=== PATIENT | male | born 1985 | race Two or more races ===

== ENCOUNTER 2022-02-04 20:42 | Emergency (ER) | payer SELFPAY ==
[~2022-02-04] VITALS: Ht 180.3 cm; Wt 83.4 kg
[2022-02-04 21:30] VITALS: BP 139/96
== END 2022-02-05 00:38 | disposition left against medical advice (07) ==
LOC: ER 20:42
DX: S61.217A Laceration without foreign body of left little finger without damage to nail, initial encounter (principal); Z53.21 Procedure and treatment not carried out due to patient leaving prior to being seen by health care provider; W26.8XXA Contact with other sharp object(s), not elsewhere classified, initial encounter; Y93.89 Activity, other specified; Y92.89 Other specified places as the place of occurrence of the external cause; Y99.8 Other external cause status

== ENCOUNTER 2022-08-02 17:49 | Emergency (ER) | payer MEDICAID, OTHER ==
[~2022-08-02] VITALS: Ht 177.8 cm; Wt 87.2 kg
[2022-08-02 18:05] VITALS: BP 144/91
[2022-08-02] MEDS ORDERED: ONDANSETRON HCL 4 MG/2 ML VIAL IV ONE (19:15)
[2022-08-02] MEDS ORDERED: LORazepam 2MG/ML-1ML VIAL IV ONE (19:15)
[2022-08-02] MEDS ORDERED: SODIUM CHLORIDE 0.9% 1,000 ML IVB ONE (19:15)
[2022-08-02] MEDS ORDERED: SODIUM CHLORIDE 0.9% 1,000 ML IV ONE (19:15)
[2022-08-02] MEDS ORDERED: CHL10C PO (19:44)
[2022-08-02 19:45] LABS: Basophils # (auto) 0.1 10 ^3/uL (0-0.2); Basophils % (auto) 0.9 % (0.0-2.0); Eosinophils # (auto) 0 10 ^3/uL (0-0.8); Eosinophils % (auto) 0.3 % (0.0-7.0); Hematocrit 43.1 % (41.0-53.0); Hemoglobin 14.3 g/dL (13.5-17.5); Lymphocytes # (auto) 2.9 10 ^3/uL (0.4-5.4); Lymphocytes % (auto) 40.8 % (10.0-50.0); Mean Corpuscular Hgb Conc. 33.2 g/dL (32.0-36.0); Mean Corpuscular Volume 87.2 fL (80.0-100.0); Monocytes # (auto) 0.6 10 ^3/uL (0-1.3); Neutrophils # (auto) 3.5 10 ^3/uL (1.6-8.6); Nucleated Red Blood Cells % 0.3 %; Red Blood Cells 4.94 10^6/uL (4.5-5.90); Red Cell Distribution Width 14.3 % (11.8-14.3); White Blood Cell 7.2 10^3/uL (4.4-10.8)
[2022-08-02] MEDS ORDERED: ONDA-144 PO (19:45)
[2022-08-02] MEDS ORDERED: IBUPROFEN 600 MG TAB PO ONE (20:00)
[2022-08-02 20:03] LABS: Albumin 4.3 g/dL (3.4-5.0); Calcium 9.4 mg/dL (8.5-10.1); Potassium 4.5 mmol/L (3.5-5.1)
[2022-08-02 20:07] LABS: BUN/Creatinine Ratio 11.6 (10.0-20.0); Bilirubin, Total 0.4 mg/dL (0.2-1.0); Total Protein 8.4 g/dL (6.4-8.2)
== END 2022-08-03 00:51 | disposition home or self-care (01) ==
LOC: ER 17:49
DX: F10.139 Alcohol abuse with withdrawal, unspecified (principal); Y90.1 Blood alcohol level of 20-39 mg/100 ml
CPT/HCPCS: 36415; 80053; 80320; 85025

== ENCOUNTER 2024-03-28 09:19 | Inpatient (IN) | payer MEDICAID ==
[~2024-03-28] VITALS: Ht 180.3 cm; Wt 98.0 kg
[~2024-03-28 09:19] MED LIST: CHL10C PO; LISI10TA34 PO; ONDA-144 PO
--- NOTE | 2024-03-28 09:37 | ED.PDOC ---
History of Present Illness HPI Comments 39 year old male TAMIKA presents to the ED with chief complaint of ETOH withdrawals. Patient reports that he has been experiencing chills, body aches, nausea, vomiting, chest pain, abdominal pain, and tremors for the past 3 days, noting that he stopped drinking after a 3 week binge on Tuesday. Patient relays that he visited yesterday and was given Tamiflu and Zofran with no relief noted. EMS states patient called 911 yesterday, but had signed out AMA and then called again today due to his symptoms persisting. Patient denies any fever, dizziness, headache, SOB, diarrhea, or hematemesis. Time Seen by MD: 09:31 Reviewed Notes: Nurses Notes, Machine Setter Sheet Metal Notes, Medications, Allergies Allergies: Coded Allergies: NO KNOWN ALLERGIES (Unverified , 02/04/22) Home Meds Active Scripts Ondansetron (Zofran) 4 Mg Tab, 1 TAB PO Q6HR, #20 TAB Prov:LISA BRIDGES MD 08/02/22 Chlordiazepoxide Hcl (Ni-1) (I (Librium) 10 Mg Cap, 10 MG PO BID for 7 Days, #20 CAP Prov:LISA BRIDGES MD 08/02/22 Lisinopril (Lisinopril) 10 Mg Tab, 10 MG PO DAILY for 7 Days, #7 MG Prov:EARL JONES MD 07/12/22 Information Source: Patient, Emergency Med Personnel Mode of Arrival: EMS Severity: Moderate Timing: Hours Duration: Since onset Prehospital treatment: None Past Medical History PAST MEDICAL HISTORY: Denies Surgical History: Denies all surgeries Family History Family History: Reviewed,noncontributory to illness Social History Smoker: Non-Smoker, Other Alcohol: Heavy Drugs: Denies Drug Use Lives In: Home Constitutional: reports: malaise; denies: chills, diaphoresis, fatigue, fever, sweats, weakness, others EENTM: denies: blurred vision, double vision, ear bleeding, ear discharge, ear drainage, ear pain, ear ringing, eye pain, eye redness, hearing loss, mouth pain, mouth swelling, nasal discharge, nose bleeding, nose congestion, nose pain, photophobia, tearing, throat pain, throat swelling, voice changes, others Respiratory: denies: cough, hemoptysis, orthopnea, SOB at rest, shortness of breath, SOB with excertion, stridor, wheezing, others Cardiovascular: reports: chest pain; denies: dizzy spells, diaphoresis, Dyspnea on exertion, edema, irregular heart beat, left arm pain, lightheadedness, palpitations, PND, syncope, others Gastrointestinal: reports: abdominal pain, nausea, vomiting; denies: abdomen distended, blood streaked bowels, constipated, diarrhea, dysphagia, difficulty swallowing, hematemesis, melena, poor appetite, poor fluid intake, rectal bleeding, rectal pain, others Genitourinary: denies: burning, dysuria, flank pain, frequency, hematuria, incontinence, penile discharge, penile sore, pain, testicle pain, testicle swelling, urgency, others Neurological: reports: tremors; denies: dizziness, fainting, headache, left sided numbness, left sided weakness, numbness, paresthesia, pre-existing deficit, right sided numbness, right sided weakness, seizure, speech problems, tingling, weakness, others Musculoskeletal: denies: back pain, gout, joint pain, joint swelling, muscle p ain, muscle stiffness, neck pain, others Integumetry: denies: bruises, change in color, change in hair/nails, dryness, laceration, lesions, lumps, rash, wounds, others Allergic/Immunocompromised: denies: Difficulty Healing, Frequent Infections, Hives, Itching, others Hematologic/Lymphatic: denies: anemia, blood clots, easy bleeding, easy bruising, swollen glands, others Endocrine: denies: excessive hunger, excessive sweating, excessive thirst, excessive urination, flushing, intolerance to cold, intolerance to heat, unexplained weight gain, unexplained weight loss, others Psychiatric: denies: anxiety, bipolar disorder, depression, hopeless, panic disorder, schizophrenia, sleepless, suicidal, others All Other Systems: Reviewed and Negative Physical Exam General Appearance: No Apparent Distress, Normal HEENT: Normal ENT Inspection, PERRL/EOMI, Other (Dry mucous membranes) Neck: Full Range of Motion, Non-Tender, Normal, Normal Inspection Respiratory: Chest Non-Tender, Lungs Clear, No Accessory Muscle Use, No Respiratory Distress, Normal Breath Sounds Cardiovascular: No Edema, No JVD, No Murmur, No Gallop, Normal Peripheral Pulses, Tachycardia Breast Exam: Deferred Gastrointestinal: No Organomegaly, Non Tender, No Pulsatile Mass, Normal Bowel Sounds, Soft Genitalia: Deferred Pelvic: Deferred Rectal: Deferred Extremities: No calf tenderness, Normal capillary refill, Normal inspection, Normal range of motion, Non-tender, No pedal edema Musculoskeletal : Apperance: Normal Neurologic: Alert, 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 Was a procedure done?: No EKG EKG : Pulse Rate (adult): 120 Scott: Normal Cardiac Rhythm: ST Block: None Hypertrophy: None ST: Normal Differential Dx Considerations may include: Dehydration, electrolyte abnormalities, alcohol withdrawal, viral syndrome X-Ray, Labs, Meds, VS Vital Signs Date Time Temp Pulse Resp B/P (MAP) Pulse Ox O2 Delivery O2 Flow Rate FiO2 03/28/24 09:40 97.8 120 24 145/95 (112) 99 03/28/24 09:40 97.8 120 24 145/95 (112) 99 97.8 03/28/24 09:38 120 03/28/24 09:26 120 Lab Test 03/28/24 12:34 03/28/24 10:45 03/28/24 09:49 Range/Units Troponin I High Sensitivity 16 17 19 </=54 ng/L White Blood Count 8.7 4.4-10.8 10^3/uL Red Blood Count 6.11 H 4.5-5.90 10^6/uL Hemoglobin 18.7 H 13.5-17.5 g/dL Hematocrit 53.6 H 41.0-53.0 % Mean Corpuscular Volume 87.8 80.0-100.0 fL Mean Corpuscular Hemoglobin 30.6 28.0-32.0 pg Mean Corpuscular Hemoglobin Concent 34.9 32.0-36.0 g/dL Red Cell Distribution Width 15.1 H 11.8-14.3 % Platelet Count 343 140-450 10^3/uL Mean Platelet Volume 7.5 6.9-10.8 fL Neutrophils (%) (Auto) 62.9 37.0-80.0 % Lymphocytes (%) (Auto) 24.1 10.0-50.0 % Monocytes (%) (Auto) 12.0 0.0-12.0 % Eosinophils (%) (Auto) 0.0 0.0-7.0 % Basophils (%) (Auto) 1.0 0.0-2.0 % Neutrophils # (Auto) 5.5 1.6-8.6 10 ^3/uL Lymphocytes # (Auto) 2.1 0.4-5.4 10 ^3/uL Monocytes # (Auto) 1.1 0-1.3 10 ^3/uL Eosinophils # (Auto) 0 0-0.8 10 ^3/uL Basophils # (Auto) 0.1 0-0.2 10 ^3/uL Nucleated Red Blood Cells 0.1 % Sodium Level 139 136-145 mmol/L Potassium Level 3.7 3.5-5.1 mmol/L Chloride Level 99 98-107 mmol/L Carbon Dioxide Level 21 20-31 mmol/L Anion Gap 19 H 5-15 Blood Urea Nitrogen 20 9-23 mg/dL Creatinine 3.33 H 0.700-1.30 mg/dL Glomerular Filtration Rate Calc 23 >90 mL/min BUN/Creatinine Ratio 6.0 L 10.0-20.0 Serum Glucose 168 H 74-106 mg/dL Calcium Level 10.5 H 8.7-10.4 mg/dL Plasma/Serum Blood Alcohol < 3.0 <10 mg/dL Current Medications Medications (Trade) Dose Ordered Sig/Carmelina Route Start Time Stop Time Status Last Admin Lorazepam (Ativan Inj) 1 mg ONCE ONCE IV 03/28/24 10:00 03/28/24 10:01 DC 03/28/24 10:06 Sodium Chloride 1,000 ml @ 1,000 mls/hr Q1H ONCE IV 03/28/24 11:00 03/28/24 11:59 DC 03/28/24 11:02 Ondansetron HCl (Zofran) 4 mg ONCE ONCE IV 03/28/24 11:00 03/28/24 11:01 DC 03/28/24 11:02 Chest XR: FINDINGS: Medical devices: None. Cardiomediastinal: The heart is normal in size. Pulmonary vasculature is within normal limits. Lungs: No focal pulmonary opacity is seen. The costophrenic angles are clear. No pneumothorax. Bones/soft tissues: No acute abnormality is noted. IMPRESSION: 1. No acute cardiopulmonary disease. Images Reviewed?: Images reviewed and evaluated by me Time of 1ST Reevaluation: 10:31 Reevaluation 1ST: Unchanged Patient Education/Counseling: Diagnosis, Treatment Family Education/Counseling: No Family Present Departure 1 Departure Time of Disposition: 13:46 (Patient with an SELWYN with elevated creatinine.) Impression: Primary Impression: Acute kidney injury Additional Impression: Dehydration Disposition: 09 ADMITTED INPATIENT Admit to: Med Surg Condition: Serious Critical Care Note Critical Care Time?: No Stability Stability form required: No Heart Score Heart Score: Heart Score Response (Comments) Value History N/A 0 EKG N/A 0 Age N/A 0 Risk Factors N/A 0 Troponin N/A 0 Total 0 I personally scribed for NEO SCOTT MD ([email or web address]) on 03/28/24 at 09:37. Electronically submitted by Campbell Walters ([email or web address]). I personally scribed for NEO SCOTT MD ([email or web address]) on 03/28/24 at 09:38. Electronically submitted by Campbell Walters ([email or web address]). I personally scribed for NEO SCOTT MD ([email or web address]) on 03/28/24 at 12:36. Electronically submitted by Campbell Walters ([email or web address]). NEO SCOTT MD Mar 28, 2024 09:37
[2024-03-28 10:05] LABS: Basophils # (auto) 0.1 10 ^3/uL (0-0.2); Eosinophils # (auto) 0 10 ^3/uL (0-0.8); Hemoglobin 18.7 g/dL (13.5-17.5)
[2024-03-28] MEDS: LORazepam 2MG/ML-1ML VIAL IV ONE (10:06)
[2024-03-28 10:07] LABS: Hematocrit 53.6 % (41.0-53.0); Lymphocytes # (auto) 2.1 10 ^3/uL (0.4-5.4); Lymphocytes % (auto) 24.1 % (10.0-50.0); Mean Corpuscular Hemoglobin 30.6 pg (28.0-32.0); Mean Corpuscular Hgb Conc. 34.9 g/dL (32.0-36.0); Mean Corpuscular Volume 87.8 fL (80.0-100.0); Monocytes # (auto) 1.1 10 ^3/uL (0-1.3); Neutrophils # (auto) 5.5 10 ^3/uL (1.6-8.6); Neutrophils % (auto) 62.9 % (37.0-80.0); Nucleated Red Blood Cells % 0.1 %; Platelet Count (auto) 343 10^3/uL (140-450); Red Blood Cells 6.11 10^6/uL (4.5-5.90); Red Cell Distribution Width 15.1 % (11.8-14.3); White Blood Cell 8.7 10^3/uL (4.4-10.8)
--- NOTE | 2024-03-28 10:07 | DVH ---
Procedure: XY CHEST PORTABLE 03/28/2024 09:39 AM Indication: sob Comparison: None TECHNIQUE: XY CHEST PORTABLE FINDINGS: Medical devices: None. Cardiomediastinal: The heart is normal in size. Pulmonary vasculature is within normal limits. Lungs: No focal pulmonary opacity is seen. The costophrenic angles are clear. No pneumothorax. Bones/soft tissues: No acute abnormality is noted. IMPRESSION: 1. No acute cardiopulmonary disease.
[2024-03-28 10:35] LABS: Chloride 99 mmol/L (98-107); Potassium 3.7 mmol/L (3.5-5.1); Sodium 139 mmol/L (136-145)
[2024-03-28 10:36] LABS: Anion Gap 19 (5-15); Carbon Dioxide 21 mmol/L (20-31)
[2024-03-28 10:37] LABS: Calcium 10.5 mg/dL (8.7-10.4)
[2024-03-28 10:42] LABS: Blood Alcohol < 3.0 mg/dL (<10); Blood Urea Nitrogen 20 mg/dL (9-23); Glucose 168 mg/dL (74-106)
[2024-03-28] MEDS: ONDANSETRON HCL 4 MG/2 ML VIAL IV ONE ×2 (11:02→15:23)
[2024-03-28] MEDS: SODIUM CHLORIDE 0.9% 1,000 ML IV ONE ×2 (11:02→15:21)
[2024-03-28] MEDS: ONDANSETRON HCL 4 MG/2 ML VIAL ONE (11:03)
--- NOTE | 2024-03-28 12:31 | ECG ---
[facility]– [place] Test Date: 2024-03-28 Test Time: 09:26:44 Pat Name: DARNELL KHAN Department: ER Room: 0209T Gender: M Dogger: ALBERT : 1985 Requested By: EMERGENCY EMERGENCY Order Number: [id number] Reading MD: Mike Newell Measurements Intervals [place] Rate: 120 P: 68 [place]: 135 QRS: 205 QRSD: 106 T: 44 QT: 379 QTc: 536 Interpretive Statements Sinus tachycardia Probable left atrial enlargement Probable right ventricular hypertrophy Repol abnrm suggests ischemia, anterolateral Prolonged QT interval Electronically Signed On 03-30-2024 17:34:01 PST by Mike Newell Please click the below link to view image of tracing.
[2024-03-28] MEDS ORDERED: MORPHINE SULFATE INJ 2 MG/ml SYRG IV PRN (16:00)
[2024-03-28] MEDS ORDERED: NITROGLYCERIN 0.4 MG SL TAB SL PRN (16:00)
--- NOTE | 2024-03-28 16:39 | DVHHP2 ---
Admitting Diagnosis: Admission date: 03/28/2024 alcohol withdraw History of Present Illness Patient is a 39-year-old male who presents to the emergency department with a chief complaint of alcohol withdrawals. Patient states that for the past 3 days has been experiencing bodyaches, chills, vomiting, nausea, chest pain, abdominal pain, and tremors. Patient states that he is stopped drinking after a 3-week binge on Tuesday. Patient states that at urgent care yesterday he was given Zofran and Tamiflu with no relief noticed. EMS states that patient called 911 yesterday and was admitted to the hospital but signed out AMA and then called again today because of his symptoms persisting. Patient denies any shortness of breath, diarrhea, headache, dizziness, fever, or hematemesis. While in the emergency department the patient was evaluated by the provider, As per provider: Labs, vital signs, and imagining monitored. Patient will be admitted for further evaluation and treatment. I discussed admission with the patient/family and is in agreement to treatment plan Allergies: Coded Allergies: NO KNOWN ALLERGIES (Unverified , 02/04/22) Home Meds Active Scripts Ondansetron (Zofran) 4 Mg Tab, 1 TAB PO Q6HR, #20 TAB Prov:LISA BRIDGES MD 08/02/22 Chlordiazepoxide Hcl (Ni-1) (I (Librium) 10 Mg Cap, 10 MG PO BID for 7 Days, #20 CAP Prov:LISA BRIDGES MD 08/02/22 Lisinopril (Lisinopril) 10 Mg Tab, 10 MG PO DAILY for 7 Days, #7 MG Prov:EARL JONES MD 07/12/22 Reported Medications Zolpidem Tartrate (Ambien) 10 Mg Tab, 10 MG PO, TAB 03/29/24 Oseltamivir Phosphate (Tamiflu) 75 Mg Cap, 1 CAP PO, #10 CAP 03/29/24 Hydrochlorothiazide (Hydrochlorothiazide) 25 Mg Tab, PO DAILY for 30 Days, MG 03/29/24 Current Medications Current Medications Medications (Trade) Dose Ordered Sig/Carmelina Route PRN Reason Start Time Stop Time Status Last Admin Multivitamins (Mvi Tab) 1 tab DAILY PO 03/29/24 10:00 Hold Gabapentin (Neurontin Capsule) 300 mg TID PO 03/28/24 22:00 03/29/24 14:12 Quetiapine Fumarate (SEROquel TABLET) 25 mg HS PO 03/28/24 22:00 03/28/24 22:06 Sodium Chloride 1,000 ml @ 100 mls/hr Q10H IV 03/29/24 09:15 03/29/24 09:55 Sucralfate (Carafate Susp) 1 gm QID@0600,1130,1700,2200 PO 03/29/24 10:00 03/29/24 17:36 Pantoprazole Sodium (Protonix) 40 mg DAILY IV 03/29/24 10:00 03/29/24 09:54 Oseltamivir Phosphate (Tamiflu 75MG Capsule) 75 mg Q12HR PO 03/29/24 10:45 04/03/24 10:44 03/29/24 11:21 Hydralazine HCl (Apresoline Injection) 10 mg Q6HP PRN IV SBP>150 03/29/24 17:15 Review of Systems Constitutional: denies chills, denies fever, denies malaise Eyes: denies eye pain, denies vision change ENT: denies ear pain, denies headache, denies nasal congestion, denies painful swallowing, denies voice change Cardiovascular: denies chest pain, denies edema, denies orthopnea, denies palpitations, denies paroxysmal nocturnal dyspnea Respiratory: denies cough, denies shortness of breath Gastrointestinal: denies constipation, denies diarrhea, denies nausea, denies vomiting Genitourinary: denies dysuria, denies frequent urination, denies urethral discharge Musculoskeletal: denies back pain, denies joint pain, denies muscle pain Skin: denies bruising, denies itching, denies rash Neurological: denies focal weakness, denies headache, denies sensory changes Psychiatric: denies anxiety, denies depression Endocrine: denies polydipsia, denies polyuria Hematologic/Lymphatic: denies easy bleeding, denies easy bruising, denies enlarged lymph nodes Allergic/Immunologic: denies allergy, denies hives Vital Signs Vital Signs Date Time Temp Pulse Resp B/P (MAP) Pulse Ox O2 Delivery O2 Flow Rate FiO2 03/29/24 17:27 98.0 95 18 144/90 (108) 95 98.0 03/29/24 08:10 Room Air* 0 21 Physical Exam General Appearance: alert, no distress HEENT: EOMI, PERRLA, normal external inspect of ears, no icterus, no nasal drainage Neck: no carotid bruit, no jugular venous distention (JVD), no lymphadenopathy Chest: normal thorax Respiratory: clear to auscultation, normal air movement Cardiovascular: regular rate and rhythm, no diastolic murmur, no jugular venous distention (JVD), no rub, no systolic murmur Abdominal: soft, no hepatomegaly, no mass, no splenomegaly, no tenderness Genitourinary: grossly normal external Musculoskeletal: no joint tenderness, no swelling Extremities: normal pulses, no calf tenderness, no clubbing, no cyanosis, no edema Skin: no bruising, no jaundice, no rash Neurological: alert, No focal deficit Results Labs Test 03/29/24 07:25 03/29/24 02:47 03/28/24 20:40 03/28/24 12:34 Range/Units White Blood Count 6.8 4.4-10.8 10^3/uL Red Blood Count 5.17 4.5-5.90 10^6/uL Hemoglobin 15.7 # 13.5-17.5 g/dL Hematocrit 45.9 # 41.0-53.0 % Mean Corpuscular Volume 88.9 80.0-100.0 fL Mean Corpuscular Hemoglobin 30.4 28.0-32.0 pg Mean Corpuscular Hemoglobin Concent 34.2 32.0-36.0 g/dL Red Cell Distribution Width 14.9 H 11.8-14.3 % Platelet Count 252 140-450 10^3/uL Mean Platelet Volume 7.2 6.9-10.8 fL Neutrophils (%) (Auto) 47.3 37.0-80.0 % Lymphocytes (%) (Auto) 37.3 10.0-50.0 % Monocytes (%) (Auto) 15.0 H 0.0-12.0 % Eosinophils (%) (Auto) 0.1 0.0-7.0 % Basophils (%) (Auto) 0.3 0.0-2.0 % Neutrophils # (Auto) 3.2 1.6-8.6 10 ^3/uL Lymphocytes # (Auto) 2.5 0.4-5.4 10 ^3/uL Monocytes # (Auto) 1.0 0-1.3 10 ^3/uL Eosinophils # (Auto) 0 0-0.8 10 ^3/uL Basophils # (Auto) 0 0-0.2 10 ^3/uL Nucleated Red Blood Cells 0.2 % Sodium Level 142 136-145 mmol/L Potassium Level 3.6 3.5-5.1 mmol/L Chloride Level 102 98-107 mmol/L Carbon Dioxide Level 30 20-31 mmol/L Anion Gap 10 5-15 Blood Urea Nitrogen 15 9-23 mg/dL Creatinine 1.45 H 0.700-1.30 mg/dL Glomerular Filtration Rate Calc 63 >90 mL/min BUN/Creatinine Ratio 10.3 10.0-20.0 Serum Glucose 141 H 74-106 mg/dL Hemoglobin A1c 6.1 H <5.7 % A1C Calcium Level 9.2 8.7-10.4 mg/dL Total Bilirubin 1.9 H 0.2-1.0 mg/dL Aspartate Amino Transferase (AST) 209 H 13-40 U/L Alanine Aminotransferase (ALT) 131 H 7-40 U/L Alkaline Phosphatase 62 46-116 U/L Creatine Kinase 919 H 46-171 U/L Total Protein 7.5 5.7-8.2 g/dL Albumin 4.8 3.2-4.8 g/dL Lipase 35 12-53 U/L Influenza Type A Antigen Negative Negative Influenza Type B Antigen Positive Negative SARS-CoV-2 Antigen (Rapid) Negative NEGATIVE Urine Opiates Screen Neg NEGATIVE Urine Fentanyl Screen Neg NEGATIVE Urine Barbiturates Screen Neg NEGATIVE Urine Phencyclidine Screen Neg NEGATIVE Urine Amphetamines Screen Neg NEGATIVE Urine Benzodiazepines Screen Neg NEGATIVE Urine Cocaine Screen Neg NEGATIVE Urine Cannabinoids Screen Neg NEGATIVE Troponin I High Sensitivity 16 </=54 ng/L Test 03/28/24 09:49 Range/Units Plasma/Serum Blood Alcohol < 3.0 <10 mg/dL Plan 1. EtOH withdrawals Monitor, banana bag, CIWA protocol, PPI 2. Influenza B Monitor, Tamiflu 3. Acute renal failure R/T hypovolemia Monitor, IV fluids, monitor renal function, nephrology consult 4. Acute alcoholic hepatitis Monitor, as needed Ativan Plan discussed with: Patient, Other BRIANNE WYATT NP Mar 28, 2024 16:39
[2024-03-28] MEDS ORDERED: FOLIC ACID 1 MG TAB PO ONE (16:45)
[2024-03-28] MEDS ORDERED: THIAMINE HCL 100 MG TAB PO ONE (16:45)
[2024-03-28] MEDS: METOCLOPRAMIDE HCL 5MG/ml INJ 2ml VIAL IV ONE (16:47)
[2024-03-28] MEDS: SODIUM CHLORIDE 0.9% 1,000 ML IV SCH (18:35)
[2024-03-28] MEDS: ACETAMINOPHEN 325 MG TAB PO PRN (18:35)
[2024-03-28] MEDS: FOLIC ACID 1 MG, MULTIPLE VITAMIN 10 ML, MAGNESIUM SULF SDV 50% 8 MEQ, THIAMINE INJ 100... INJ SCH (18:52)
[2024-03-28] MEDS: ONDANSETRON HCL 4 MG/2 ML VIAL IV PRN (20:36)
[2024-03-28] MEDS: LORazepam 2MG/ML-1ML VIAL IV PRN (20:37)
[2024-03-28 20:39] VITALS: PULSE 95; RESP 18; O2SAT 96
[2024-03-28 21:22] LABS: Amphetamine Screen, Urine Neg (NEGATIVE); Barbiturate Scree,Urine Neg (NEGATIVE); Benzodiazephine Screen, Urine Neg (NEGATIVE); Cocaine Screen, Urine Neg (NEGATIVE); Opiate Scree,Urine Neg (NEGATIVE)
[2024-03-28 21:23] LABS: Cannabinoid Screen, Urine Neg (NEGATIVE); Phencyclidine Screen, Urine Neg (NEGATIVE)
[2024-03-28] MEDS: GABAPENTIN 300 MG CAP PO SCH (22:06)
[2024-03-28] MEDS: QUEtiapine FUMARATE 25 MG TAB PO SCH (22:06)
[2024-03-29] VITALS (12 sets, daily range): BP systolic 139–188; BP diastolic 57–101; PULSE 95–145; RESP 17–20; TEMP 97.6–98.8; O2SAT 93–97
[2024-03-29 03:40] LABS: COVID19 ANTIGEN SOFIA FIA NEGATIVE (NEGATIVE)
[2024-03-29 03:42] LABS: Rapid Influenza A Negative (Negative)
[2024-03-29 03:44] LABS: Rapid Influenza B Positive (Negative)
[2024-03-29] MEDS: HYDROcodone-ACET 5/325MG TAB PO PRN (05:45)
[2024-03-29] MEDS ORDERED: HYDR25TA4 PO (05:56)
[2024-03-29] MEDS ORDERED: QUET25TA37 PO (05:56)
[2024-03-29] MEDS ORDERED: OSEL75CA5 PO (05:56)
[2024-03-29] MEDS ORDERED: ZOLP10TA PO (05:57)
[2024-03-29 08:00] LABS: Basophils # (auto) 0 10 ^3/uL (0-0.2); Basophils % (auto) 0.3 % (0.0-2.0); Eosinophils # (auto) 0 10 ^3/uL (0-0.8); Eosinophils % (auto) 0.1 % (0.0-7.0); Hematocrit 45.9 % (41.0-53.0); Hemoglobin 15.7 g/dL (13.5-17.5); Lymphocytes # (auto) 2.5 10 ^3/uL (0.4-5.4); Lymphocytes % (auto) 37.3 % (10.0-50.0); Mean Corpuscular Hemoglobin 30.4 pg (28.0-32.0); Mean Corpuscular Hgb Conc. 34.2 g/dL (32.0-36.0); Mean Corpuscular Volume 88.9 fL (80.0-100.0); Neutrophils # (auto) 3.2 10 ^3/uL (1.6-8.6); Neutrophils % (auto) 47.3 % (37.0-80.0); Nucleated Red Blood Cells % 0.2 %; Platelet Count (auto) 252 10^3/uL (140-450); Red Blood Cells 5.17 10^6/uL (4.5-5.90); Red Cell Distribution Width 14.9 % (11.8-14.3); White Blood Cell 6.8 10^3/uL (4.4-10.8)
[2024-03-29 08:07] LABS: Alanine Aminotransferase 131 U/L (7-40); Albumin 4.8 g/dL (3.2-4.8); Alkaline Phosphatase 62 U/L (46-116); Anion Gap 10 (5-15); Aspartate Aminotransferase 209 U/L (13-40); BUN/Creatinine Ratio 10.3 (10.0-20.0); Blood Urea Nitrogen 15 mg/dL (9-23); Calcium 9.2 mg/dL (8.7-10.4); Carbon Dioxide 30 mmol/L (20-31); Chloride 102 mmol/L (98-107); Glucose 141 mg/dL (74-106); Potassium 3.6 mmol/L (3.5-5.1); Sodium 142 mmol/L (136-145)
[2024-03-29 08:08] LABS: Bilirubin, Total 1.9 mg/dL (0.2-1.0); Total Protein 7.5 g/dL (5.7-8.2)
--- NOTE | 2024-03-29 09:03 | DVHINCON2 ---
Date of service: Mar 29, [address] Langston Reason for Consultation Acute kidney injury. History of Present Illness 39-year-old patient with significant history of alcoholism who was going through it difficult. In his life and started drinking heavily for the last 2-3 weeks and he suddenly stopped on Tuesday since then he has had symptoms of withdrawal including severe intractable nausea and vomiting associated with epigastric discomfort and unable to tolerate oral intake. Additionally he has been experiencing chills myalgias and uncontrollable tremors for the last three days. Patient went to the urgent care he was diagnosed with influenza given Tamiflu and Zofran without significant improvements. He denies flank pain or difficulty with urination but has noticed dark discoloration of the urine. Otherwise he denies NSAID intake, history of kidney disease. On admission he was found to have acute kidney injury. Past Medical History Chronic alcoholism Past Surgical History Denied Allergies: Coded Allergies: NO KNOWN ALLERGIES (Unverified , 02/04/22) Home Meds Active Scripts Ondansetron (Zofran) 4 Mg Tab, 1 TAB PO Q6HR, #20 TAB Prov:LISA BRIDGES MD 08/02/22 Chlordiazepoxide Hcl (Ni-1) (I (Librium) 10 Mg Cap, 10 MG PO BID for 7 Days, #20 CAP Prov:LISA BRIDGES MD 08/02/22 Lisinopril (Lisinopril) 10 Mg Tab, 10 MG PO DAILY for 7 Days, #7 MG Prov:EARL JONES MD 07/12/22 Reported Medications Zolpidem Tartrate (Ambien) 10 Mg Tab, 10 MG PO, TAB 03/29/24 Oseltamivir Phosphate (Tamiflu) 75 Mg Cap, 1 CAP PO, #10 CAP 03/29/24 Hydrochlorothiazide (Hydrochlorothiazide) 25 Mg Tab, PO DAILY for 30 Days, MG 03/29/24 Current Medications Current Medications Medications (Trade) Dose Ordered Sig/Carmelina Route PRN Reason Start Time Stop Time Status Last Admin Sodium Chloride 1,000 ml @ 120 mls/hr Q8H20M IV 03/28/24 16:00 03/28/24 18:35 Acetaminophen/ Hydrocodone Bitart ([place] 5/325MG Tab) 1 tab Q4HP PRN PO MODERATE PAIN (4-6 PAIN SCALE) 03/28/24 16:00 03/29/24 05:45 Ondansetron HCl (Zofran) 4 mg Q4HP PRN IV NAUSEA / VOMITING 03/28/24 16:00 03/29/24 05:45 Acetaminophen (Tylenol Tablet) 650 mg Q6HP PRN PO PAIN SCALE 1-3 OR TEMP>100.4 03/28/24 16:00 03/28/24 18:35 Folic Acid 1 mg/ Multivitamins 10 ml/Magnesium Sulfate 8 meq/ Thiamine HCl 100 mg/Dextrose 1,013.2 ml @ 125.001 mls/hr DAILY@1800 INJ 03/28/24 18:00 03/28/24 18:52 Nitroglycerin (Ntrostat Sublingual) 0.4 mg Q5MINP PRN SL FOR CHEST PAIN 03/28/24 16:00 Morphine Sulfate 2 mg Q30M PRN IV FOR CHEST PAIN 03/28/24 16:00 Multivitamins (Mvi Tab) 1 tab DAILY PO 03/29/24 10:00 Future Hold Lorazepam (Ativan Inj) 1 mg Q2HPRN PRN IV ETOH-SEE PROTOCOL 03/28/24 16:45 03/29/24 08:43 Gabapentin (Neurontin Capsule) 300 mg TID PO 03/28/24 22:00 03/29/24 05:45 Quetiapine Fumarate (SEROquel TABLET) 25 mg HS PO 03/28/24 22:00 03/28/24 22:06 Family History: Anxiety disorder G8 FATHER Diabetes mellitus G8 MOTHER uncle Seizure disorder uncle Social History Drinks heavily for the last three weeks no drug abuse reported Review of Systems HEENT: Oral mucosa dry Neck no JVD Cardiovascular: Denies for chest pain denies orthopnea or PND Respiratory: Denies cough or shortness of breath Gastrointestinal: GERD Positive nausea vomiting Musculoskeletal: Positive myalgias Neurological: Denies focal weakness Dermatological: Denies any rash The rest of the review of systems were reviewed pertinent positives and pertinent negatives are as per HPI up to 12 points review of systems H&P Exam Vital Signs/I&O Vital Sign Date Time Temp Pulse Resp B/P (MAP) Pulse Ox O2 Delivery O2 Flow Rate FiO2 03/29/24 08:46 98.1 105 17 139/101 (114) 95 98.1 03/29/24 04:12 Room Air* 0 21 Intake and Output 03/28/24 03/29/24 19:00 07:00 Intake Total 0 ml Balance 0 ml Intake Oral 0 ml # Voids 2 Physical Exam HEENT: Dry oral mucosa Pulmonary: Lungs are clear on auscultation bilaterally Cardiovascular S1-S2, no S3 or S4 Abdomen: Bowel sounds positive, soft no rebound tenderness Skin: No rash Neurological: Alert, oriented, no focal weakness Psychiatric: Anxious Labs/Diagnostic Data Labs/Diagnostic Data Laboratory Tests Test 03/29/24 07:25 03/29/24 02:47 03/28/24 20:40 03/28/24 12:34 Range/Units White Blood Count 6.8 4.4-10.8 10^3/uL Red Blood Count 5.17 4.5-5.90 10^6/uL Hemoglobin 15.7 # 13.5-17.5 g/dL Hematocrit 45.9 # 41.0-53.0 % Mean Corpuscular Volume 88.9 80.0-100.0 fL Mean Corpuscular Hemoglobin 30.4 28.0-32.0 pg Mean Corpuscular Hemoglobin Concent 34.2 32.0-36.0 g/dL Red Cell Distribution Width 14.9 H 11.8-14.3 % Platelet Count 252 140-450 10^3/uL Mean Platelet Volume 7.2 6.9-10.8 fL Neutrophils (%) (Auto) 47.3 37.0-80.0 % Lymphocytes (%) (Auto) 37.3 10.0-50.0 % Monocytes (%) (Auto) 15.0 H 0.0-12.0 % Eosinophils (%) (Auto) 0.1 0.0-7.0 % Basophils (%) (Auto) 0.3 0.0-2.0 % Neutrophils # (Auto) 3.2 1.6-8.6 10 ^3/uL Lymphocytes # (Auto) 2.5 0.4-5.4 10 ^3/uL Monocytes # (Auto) 1.0 0-1.3 10 ^3/uL Eosinophils # (Auto) 0 0-0.8 10 ^3/uL Basophils # (Auto) 0 0-0.2 10 ^3/uL Nucleated Red Blood Cells 0.2 % Sodium Level 142 136-145 mmol/L Potassium Level 3.6 3.5-5.1 mmol/L Chloride Level 102 98-107 mmol/L Carbon Dioxide Level 30 20-31 mmol/L Anion Gap 10 5-15 Blood Urea Nitrogen 15 9-23 mg/dL Creatinine 1.45 H 0.700-1.30 mg/dL Glomerular Filtration Rate Calc 63 >90 mL/min BUN/Creatinine Ratio 10.3 10.0-20.0 Serum Glucose 141 H 74-106 mg/dL Calcium Level 9.2 8.7-10.4 mg/dL Total Bilirubin 1.9 H 0.2-1.0 mg/dL Aspartate Amino Transferase (AST) 209 H 13-40 U/L Alanine Aminotransferase (ALT) 131 H 7-40 U/L Alkaline Phosphatase 62 46-116 U/L Total Protein 7.5 5.7-8.2 g/dL Albumin 4.8 3.2-4.8 g/dL Influenza Type A Antigen Negative Negative Influenza Type B Antigen Positive Negative SARS-CoV-2 Antigen (Rapid) Negative NEGATIVE Urine Opiates Screen Neg NEGATIVE Urine Fentanyl Screen Neg NEGATIVE Urine Barbiturates Screen Neg NEGATIVE Urine Phencyclidine Screen Neg NEGATIVE Urine Amphetamines Screen Neg NEGATIVE Urine Benzodiazepines Screen Neg NEGATIVE Urine Cocaine Screen Neg NEGATIVE Urine Cannabinoids Screen Neg NEGATIVE Troponin I High Sensitivity 16 </=54 ng/L Test 03/28/24 10:45 03/28/24 09:49 Range/Units Troponin I High Sensitivity 17 19 </=54 ng/L White Blood Count 8.7 4.4-10.8 10^3/uL Red Blood Count 6.11 H 4.5-5.90 10^6/uL Hemoglobin 18.7 H 13.5-17.5 g/dL Hematocrit 53.6 H 41.0-53.0 % Mean Corpuscular Volume 87.8 80.0-100.0 fL Mean Corpuscular Hemoglobin 30.6 28.0-32.0 pg Mean Corpuscular Hemoglobin Concent 34.9 32.0-36.0 g/dL Red Cell Distribution Width 15.1 H 11.8-14.3 % Platelet Count 343 140-450 10^3/uL Mean Platelet Volume 7.5 6.9-10.8 fL Neutrophils (%) (Auto) 62.9 37.0-80.0 % Lymphocytes (%) (Auto) 24.1 10.0-50.0 % Monocytes (%) (Auto) 12.0 0.0-12.0 % Eosinophils (%) (Auto) 0.0 0.0-7.0 % Basophils (%) (Auto) 1.0 0.0-2.0 % Neutrophils # (Auto) 5.5 1.6-8.6 10 ^3/uL Lymphocytes # (Auto) 2.1 0.4-5.4 10 ^3/uL Monocytes # (Auto) 1.1 0-1.3 10 ^3/uL Eosinophils # (Auto) 0 0-0.8 10 ^3/uL Basophils # (Auto) 0.1 0-0.2 10 ^3/uL Nucleated Red Blood Cells 0.1 % Sodium Level 139 136-145 mmol/L Potassium Level 3.7 3.5-5.1 mmol/L Chloride Level 99 98-107 mmol/L Carbon Dioxide Level 21 20-31 mmol/L Anion Gap 19 H 5-15 Blood Urea Nitrogen 20 9-23 mg/dL Creatinine 3.33 H 0.700-1.30 mg/dL Glomerular Filtration Rate Calc 23 >90 mL/min BUN/Creatinine Ratio 6.0 L 10.0-20.0 Serum Glucose 168 H 74-106 mg/dL Calcium Level 10.5 H 8.7-10.4 mg/dL Plasma/Serum Blood Alcohol < 3.0 <10 mg/dL Chest x-ray reviewed Assessment Assessment: 1. Acute kidney injury secondary to hypovolemia. 2. Intractable nausea and vomiting, improving. 3. Acute alcoholic hepatitis. 4. Gastritis and esophagitis. 5. Alcohol withdrawals. Recommendations and plan: Continue IV fluids, decrease IV fluid rate Continue banana bag. Add Carafate, ppi. Check hemoglobin A1c, lipase. Diet to be advanced as per primary team. I had a long discussion with the patient about the importance of alcohol cessation in view of end-organ damage including hepatitis and acute kidney injury he verbalized understanding. Social work consultation. Check UA, CPK Thank you very much for allowing us to participate in the care of this patient. Plan discussed with: Patient LAURA MARTINEZ MD Mar 29, 2024 09:03
[2024-03-29] MEDS: SUCRALFATE 1 GM/10 ML ORAL SUSP PO SCH (09:54)
[2024-03-29] MEDS: PANTOPRAZOLE 40 MG/10 ML VIAL INJ IV SCH (09:54)
[2024-03-29] MEDS: SODIUM CHLORIDE 0.9% 1,000 ML IV SCH (09:55)
[2024-03-29] MEDS ORDERED: MULTIPLE VITAMIN TAB PO SCH (10:00)
--- NOTE | 2024-03-29 11:09 | DVHPN2 ---
Progress Note - Dictate Date Seen: Mar 29, 2024 Medical Necessity Reason Pt with a Central, PICC or Fol: No vital signs Vital Sign Date Time Temp Pulse Resp B/P (MAP) Pulse Ox O2 Delivery O2 Flow Rate FiO2 03/29/24 08:46 98.1 105 17 139/101 (114) 95 98.1 03/29/24 04:12 Room Air* 0 21 Total Intake and Output 03/28/24 03/28/24 03/29/24 15:00 23:00 07:00 Intake Total 0 ml Balance 0 ml medications Current Medications Medications Dose Ordered Sig/Carmelina Route Start Time Stop Time Status Last Admin Dose Admin Acetaminophen/ Hydrocodone Bitart 1 tab Q4HP PRN PO 03/28/24 16:00 03/29/24 05:45 1 TAB Ondansetron HCl 4 mg Q4HP PRN IV 03/28/24 16:00 03/29/24 05:45 4 MG Acetaminophen 650 mg Q6HP PRN PO 03/28/24 16:00 03/28/24 18:35 650 MG Folic Acid 1 mg/ Multivitamins 10 ml/Magnesium Sulfate 8 meq/ Thiamine HCl 100 mg/Dextrose 1,013.2 ml @ 125.001 mls/hr DAILY@1800 INJ 03/28/24 18:00 03/28/24 18:52 125.001 MLS/HR Nitroglycerin 0.4 mg Q5MINP PRN SL 03/28/24 16:00 Morphine Sulfate 2 mg Q30M PRN IV 03/28/24 16:00 Multivitamins 1 tab DAILY PO 03/29/24 10:00 Hold Lorazepam 1 mg Q2HPRN PRN IV 03/28/24 16:45 03/29/24 08:43 1 MG Gabapentin 300 mg TID PO 03/28/24 22:00 03/29/24 05:45 300 MG Quetiapine Fumarate 25 mg HS PO 03/28/24 22:00 03/28/24 22:06 25 MG Sodium Chloride 1,000 ml @ 100 mls/hr Q10H IV 03/29/24 09:15 03/29/24 09:55 100 MLS/HR Sucralfate 1 gm QID@0600,1130,1700,2200 PO 03/29/24 10:00 03/29/24 09:54 1 GM Pantoprazole Sodium 40 mg DAILY IV 03/29/24 10:00 03/29/24 09:54 40 MG Oseltamivir Phosphate 75 mg Q12HR PO 03/29/24 10:45 04/03/24 10:44 objective General Appearance: alert, no distress HEENT: EOMI, PERRLA, normal external inspect of ears, no icterus, no nasal drainage Neck: no carotid bruit, no jugular venous distention (JVD), no lymphadenopathy Chest: normal thorax Respiratory: clear to auscultation, normal air movement Cardiovascular: regular rate and rhythm, no diastolic murmur, no jugular venous distention (JVD), no rub, no systolic murmur Abdominal: soft, no hepatomegaly, no mass, no splenomegaly, no tenderness Genitourinary: grossly normal external Musculoskeletal: no joint tenderness, no swelling Extremities: normal pulses, no calf tenderness, no clubbing, no cyanosis, no edema Skin: no bruising, no jaundice, no rash Neurological: alert, No focal deficit laboratory and microbiology Laboratory Tests 03/29/24 07:25 Test 03/29/24 07:25 Range/Units Serum Glucose 141 H 74-106 mg/dL Problem List 1. EtOH withdrawals Monitor, banana bag, CIWA protocol, PPI 2. Influenza B Monitor, Tamiflu 3. Acute renal failure R/T hypovolemia Monitor, IV fluids, monitor renal function, nephrology consult 4. Acute alcoholic hepatitis Monitor, as needed Ativan Assessment/Plan Subjective: Patient is awake and alert. Objective: Patient was admitted for withdrawal symptoms. Currently stopped drinking this weekend, subsequent he is not feeling well and has having severe nausea and vomiting. Patient was admitted for acute renal failure which is improving. Creatinine 1.77 today. Patient was seen by nephrology. Patient also had complaints of pain he was diagnosed with influenza B. Patient was initiated on Tamiflu. Plan: Continue current treatment. Monitor daily labs and renal function. Continue Ativan as needed withdrawal symptoms. Plan discussed with: Patient, Other BRIANNE WYATT NP Mar 29, 2024 11:09
[2024-03-29] MEDS: OSELTAMIVIR 75 MG CAP PO SCH (11:21)
[2024-03-30] VITALS (8 sets, daily range): BP systolic 137–153; BP diastolic 93–101; PULSE 81–103; RESP 17–19; TEMP 97.2–98.2; O2SAT 94–97
[2024-03-30] MEDS: hydrALAZINE HCL 20 MG/ML VL IV PRN (05:52)
[2024-03-30 09:45] LABS: Basophils # (auto) 0 10 ^3/uL (0-0.2); Basophils % (auto) 0.6 % (0.0-2.0); Eosinophils # (auto) 0 10 ^3/uL (0-0.8); Hematocrit 41.8 % (41.0-53.0); Hemoglobin 14.2 g/dL (13.5-17.5); Lymphocytes # (auto) 2.4 10 ^3/uL (0.4-5.4); Lymphocytes % (auto) 48.4 % (10.0-50.0); Mean Corpuscular Hgb Conc. 33.9 g/dL (32.0-36.0); Mean Corpuscular Volume 88.4 fL (80.0-100.0); Monocytes # (auto) 0.7 10 ^3/uL (0-1.3); Monocytes % (auto) 14.4 % (0.0-12.0); Neutrophils # (auto) 1.7 10 ^3/uL (1.6-8.6); Neutrophils % (auto) 35.6 % (37.0-80.0); Nucleated Red Blood Cells % 0.1 %; Platelet Count (auto) 223 10^3/uL (140-450); Red Blood Cells 4.73 10^6/uL (4.5-5.90); Red Cell Distribution Width 14.4 % (11.8-14.3); White Blood Cell 4.9 10^3/uL (4.4-10.8)
[2024-03-30 10:05] LABS: Alanine Aminotransferase 197 U/L (7-40); Albumin 4.3 g/dL (3.2-4.8); Alkaline Phosphatase 56 U/L (46-116); Anion Gap 6 (5-15); Aspartate Aminotransferase 213 U/L (13-40); BUN/Creatinine Ratio 7.5 (10.0-20.0); Bilirubin, Total 1.5 mg/dL (0.2-1.0); Blood Urea Nitrogen 7 mg/dL (9-23); Calcium 8.6 mg/dL (8.7-10.4); Carbon Dioxide 33 mmol/L (20-31); Chloride 99 mmol/L (98-107); Glucose 111 mg/dL (74-106); Magnesium 2.3 mg/dL (1.6-2.6); Sodium 138 mmol/L (136-145); Total Protein 6.9 g/dL (5.7-8.2)
[2024-03-30] MEDS: POTASSIUM EFFERVESENT TAB 25 MEQ PO ONE (11:50)
[2024-03-30] MEDS: MAALOX PLUS or MAALOX 30 ML PO ONE (11:50)
--- NOTE | 2024-03-30 13:29 | DVHPN2 ---
Progress Note Date Seen: Mar 30, 2024 Medical Necessity Reason Pt with a Central, PICC or Fol: No Subjective Review of Systems: CVS:Normal, RESPIRATORY:Normal, GI:Abnormal (Reports abdominal pain), NEURO:Normal Objective vital signs Vital Sign Date Time Temp Pulse Resp B/P (MAP) Pulse Ox O2 Delivery O2 Flow Rate FiO2 03/30/24 13:06 98.2 92 18 137/93 (108) 95 98.2 03/30/24 08:00 Room Air* 0 21 Total Intake and Output 03/29/24 03/29/24 03/30/24 15:00 23:00 07:00 Intake Total 500 ml 1375 ml 1313.2 ml Output Total 2 ml Balance 500 ml 1373 ml 1313.2 ml medications Current Medications Medications Dose Ordered Sig/Carmelina Route Start Time Stop Time Status Last Admin Dose Admin Acetaminophen/ Hydrocodone Bitart 1 tab Q4HP PRN PO 03/28/24 16:00 03/29/24 05:45 1 TAB Ondansetron HCl 4 mg Q4HP PRN IV 03/28/24 16:00 03/30/24 07:56 4 MG Acetaminophen 650 mg Q6HP PRN PO 03/28/24 16:00 03/30/24 09:45 650 MG Folic Acid 1 mg/ Multivitamins 10 ml/Magnesium Sulfate 8 meq/ Thiamine HCl 100 mg/Dextrose 1,013.2 ml @ 125.001 mls/hr DAILY@1800 INJ 03/28/24 18:00 03/29/24 17:39 125.001 MLS/HR Nitroglycerin 0.4 mg Q5MINP PRN SL 03/28/24 16:00 Morphine Sulfate 2 mg Q30M PRN IV 03/28/24 16:00 Multivitamins 1 tab DAILY PO 03/29/24 10:00 Hold Lorazepam 1 mg Q2HPRN PRN IV 03/28/24 16:45 03/29/24 23:34 1 MG Gabapentin 300 mg TID PO 03/28/24 22:00 03/30/24 05:47 300 MG Quetiapine Fumarate 25 mg HS PO 03/28/24 22:00 03/29/24 21:10 25 MG Sodium Chloride 1,000 ml @ 100 mls/hr Q10H IV 03/29/24 09:15 03/29/24 09:55 100 MLS/HR Sucralfate 1 gm QID@0600,1130,1700,2200 PO 03/29/24 10:00 03/30/24 11:50 1 GM Oseltamivir Phosphate 75 mg Q12HR PO 03/29/24 10:45 04/03/24 10:44 03/30/24 09:44 75 MG Hydralazine HCl 10 mg Q6HP PRN IV 03/29/24 17:15 03/30/24 05:52 10 MG Pantoprazole Sodium 40 mg BID IV 03/30/24 22:00 Examination: LUNGS:Normal, ABDOMEN:Normal, ABDOMEN:Abnormal (Abdomen is soft and reports some tenderness noted no distention), SKIN:Normal, NEURO:Normal laboratory and microbiology Laboratory Tests 03/30/24 09:13 Test 03/30/24 09:13 Range/Units Serum Glucose 111 H 74-106 mg/dL Labs and/or images reviewed: Labs reviewed by me, Image(s) reviewed by me Problem List/Assessment/Plan Problem List/Assessment/Plan 1. EtOH withdrawals Monitor, banana bag, CIWA protocol, PPI 2. Influenza B Monitor, Tamiflu 3. Acute renal failure R/T hypovolemia Monitor, IV fluids, monitor renal function, nephrology consult 4. Acute alcoholic hepatitis Monitor, as needed Ativan 5. Alcoholic gastritis PPI, GI consult, GI cocktail as needed 6. Hypokalemia Replace Assessment/Plan Subjective: Patient is awake and alert. Objective: Patient was admitted for withdrawal symptoms. Currently stopped drinking this weekend, subsequent he is not feeling well and has having severe nausea and vomiting. Patient was admitted for acute renal failure which is improving. Renal function is back at baseline. Patient also had complaints of pain he was diagnosed with influenza B. Patient was initiated on Tamiflu. Potassium today was three, replaced Plan: Continue current treatment. Monitor daily labs and renal function. Continue Ativan as needed withdrawal symptoms. GI consult, GI cocktail as needed, increase Protonix to b.i.d., replace potassium, start clear liquid diet. Plan discussed with: Patient My Orders My Orders Orders - ANN HERNANDEZ Procedure Category Date Status Time * Gi Dvh Field Secretary CONS 03/30/24 Transmitted 12:01 Pantoprazole PHA 03/30/24 In Process (Protonix) 22:00 Clear Liq Diet DIET 03/30/24 Transmitted Lunch Potassium Chl Darrin PHA 03/30/24 Verified KCL 13:15 Dietary Evaluation Review Comments: 1) Continue to monitor pt PO intake to meet at least 75% of meals 2) Consider a 2gm Sodium diet 3) Continue current plan of care Expected Outcomes/Goals: 1) Pt appetite to improve 2) F/U in 3-5 days Date of Service: Mar 30, 2024 Billing Provider: ANNETTA BUSBY MD Common Visit Codes: [id number] INP/OBS CARE (MOD) ANN HERNANDEZ VENEER STACKER Mar 30, 2024 13:29
[2024-03-30] MEDS: POTASSIUM CHLORIDE 40 MEQ, LIDOCAINE 1% (LOCAL ANESTH.) 4 ML in SODIUM CHL 0.9% 250 ML IV ONE (14:28)
[2024-03-30] MEDS: CARVEDILOL 3.125 MG TAB PO ONE (17:50)
--- NOTE | 2024-03-30 21:17 | DVHINCON2 ---
Date of service: Mar 30, [address] melchor Reason for Consultation Possible alcoholic hepatitis History of Present Illness This 39-year-old presented to the emergency room with complaints of alcoholism and alcohol withdrawal he had been having body aches and chills vomiting nausea abdominal pain tremulousness etc. apparently he stopped drinking about three weeks ago big binge patient was given an urgent care some medication but persisted to have more symptoms and hence called the 911 and came to the emergency room and get admitted. In the emergency room his liver enzymes are high with a bilirubin of 1.9 AST of 209 ALT of 131 and hence the reason for the GI consult Had some hepatitis details of which is not available patient is not sure he got treated any time Past Medical History Questionable hepatitis alcoholism Past Surgical History None Family History: Anxiety disorder G8 FATHER Diabetes mellitus G8 MOTHER uncle Seizure disorder uncle Family History Noncontributory Social History Heavy alcoholism Allergies: Coded Allergies: NO KNOWN ALLERGIES (Unverified , 02/04/22) Home Meds Active Scripts Ondansetron (Zofran) 4 Mg Tab, 1 TAB PO Q6HR, #20 TAB Prov:LISA BRIDGES MD 08/02/22 Chlordiazepoxide Hcl (Ni-1) (I (Librium) 10 Mg Cap, 10 MG PO BID for 7 Days, #20 CAP Prov:LISA BRIDGES MD 08/02/22 Lisinopril (Lisinopril) 10 Mg Tab, 10 MG PO DAILY for 7 Days, #7 MG Prov:EARL JONES MD 07/12/22 Reported Medications Zolpidem Tartrate (Ambien) 10 Mg Tab, 10 MG PO, TAB 03/29/24 Oseltamivir Phosphate (Tamiflu) 75 Mg Cap, 1 CAP PO, #10 CAP 03/29/24 Hydrochlorothiazide (Hydrochlorothiazide) 25 Mg Tab, PO DAILY for 30 Days, MG 03/29/24 Current Medications Current Medications Medications (Trade) Dose Ordered Sig/Carmelina Route PRN Reason Start Time Stop Time Status Last Admin Pantoprazole Sodium (Protonix) 40 mg BID IV 03/30/24 22:00 Carvedilol (Coreg Tablet) 6.25 mg Q12HR PO 03/31/24 10:00 Amlodipine Besylate (Norvasc Tablet) 5 mg DAILY PO 03/31/24 10:00 Review of Systems Noncontributory Vital Signs Vital Signs Date Time Temp Pulse Resp B/P (MAP) Pulse Ox O2 Delivery O2 Flow Rate FiO2 03/30/24 18:50 90 157/97 03/30/24 16:56 97.9 18 94 97.9 03/30/24 08:00 Room Air* 0 21 Physical Exam Moderately built and nourished male in no acute distress Very anxious and tremulous probably from alcohol withdrawal Alert and oriented HEENT examination no pallor no icterus Neck is supple lungs clear Cardiovascular unremarkable Abdomen soft No tenderness no rigidity no guarding no mass Bowel sounds are normal Extremities no edema No focal neurological deficits Labs/Diagnostic Data Labs Test 03/30/24 09:13 03/29/24 07:25 03/29/24 02:47 03/28/24 20:40 Range/Units White Blood Count 4.9 # 4.4-10.8 10^3/uL Red Blood Count 4.73 4.5-5.90 10^6/uL Hemoglobin 14.2 13.5-17.5 g/dL Hematocrit 41.8 41.0-53.0 % Mean Corpuscular Volume 88.4 80.0-100.0 fL Mean Corpuscular Hemoglobin 30.0 28.0-32.0 pg Mean Corpuscular Hemoglobin Concent 33.9 32.0-36.0 g/dL Red Cell Distribution Width 14.4 H 11.8-14.3 % Platelet Count 223 140-450 10^3/uL Mean Platelet Volume 7.2 6.9-10.8 fL Neutrophils (%) (Auto) 35.6 L 37.0-80.0 % Lymphocytes (%) (Auto) 48.4 10.0-50.0 % Monocytes (%) (Auto) 14.4 H 0.0-12.0 % Eosinophils (%) (Auto) 1.0 0.0-7.0 % Basophils (%) (Auto) 0.6 0.0-2.0 % Neutrophils # (Auto) 1.7 1.6-8.6 10 ^3/uL Lymphocytes # (Auto) 2.4 0.4-5.4 10 ^3/uL Monocytes # (Auto) 0.7 0-1.3 10 ^3/uL Eosinophils # (Auto) 0 0-0.8 10 ^3/uL Basophils # (Auto) 0 0-0.2 10 ^3/uL Nucleated Red Blood Cells 0.1 % Sodium Level 138 136-145 mmol/L Potassium Level 3.0 L 3.5-5.1 mmol/L Chloride Level 99 98-107 mmol/L Carbon Dioxide Level 33 H 20-31 mmol/L Anion Gap 6 5-15 Blood Urea Nitrogen 7 L 9-23 mg/dL Creatinine 0.93 0.700-1.30 mg/dL Glomerular Filtration Rate Calc 107 >90 mL/min BUN/Creatinine Ratio 7.5 L 10.0-20.0 Serum Glucose 111 H 74-106 mg/dL Calcium Level 8.6 L 8.7-10.4 mg/dL Magnesium Level 2.3 1.6-2.6 mg/dL Total Bilirubin 1.5 H 0.2-1.0 mg/dL Aspartate Amino Transferase (AST) 213 H 13-40 U/L Alanine Aminotransferase (ALT) 197 H 7-40 U/L Alkaline Phosphatase 56 46-116 U/L Total Protein 6.9 5.7-8.2 g/dL Albumin 4.3 3.2-4.8 g/dL Hemoglobin A1c 6.1 H <5.7 % A1C Creatine Kinase 919 H 46-171 U/L Lipase 35 12-53 U/L Influenza Type A Antigen Negative Negative Influenza Type B Antigen Positive Negative SARS-CoV-2 Antigen (Rapid) Negative NEGATIVE Urine Opiates Screen Neg NEGATIVE Urine Fentanyl Screen Neg NEGATIVE Urine Barbiturates Screen Neg NEGATIVE Urine Phencyclidine Screen Neg NEGATIVE Urine Amphetamines Screen Neg NEGATIVE Urine Benzodiazepines Screen Neg NEGATIVE Urine Cocaine Screen Neg NEGATIVE Urine Cannabinoids Screen Neg NEGATIVE Test 03/28/24 12:34 03/28/24 09:49 Range/Units Troponin I High Sensitivity 16 </=54 ng/L Plasma/Serum Blood Alcohol < 3.0 <10 mg/dL Assessment 39-year-old male with alcohol withdrawal symptoms history of heavy drinking his for phos found to have abnormal liver enzymes consistent with possible alcoholic hepatitis. Patient has history of some hepatitis in the past so we will recommend a hepatitis panel to be checked is still Clinical impression acute alcoholic hepatitis with alcohol withdrawal at this time Plan/Recommendation Watch closely for DTs electrolytes magnesium and follow the liver enzymes closely Recommend to check the hepatitis panel if not checked early because of the history of hepatitis in the past Plan discussed with: Patient JONATHAN MUJICA MD Mar 30, 2024 21:17
[2024-03-30] MEDS: PANTOPRAZOLE 40 MG/10 ML VIAL INJ IV SCH (21:39)
[2024-03-31] VITALS (9 sets, daily range): BP systolic 145–153; BP diastolic 80–99; PULSE 67–82; RESP 16–20; TEMP 98–99; O2SAT 94–97
[2024-03-31] MEDS: CARVEDILOL 3.125 MG TAB PO SCH (10:14)
[2024-03-31] MEDS: amLODIPine BESYLATE 5 MG TAB PO SCH ×2 (10:15→14:17)
[2024-03-31] MEDS ORDERED: LORazepam 2MG/ML-1ML VIAL IV PRN (13:45)
[2024-03-31 14:20] LABS: Basophils # (auto) 0 10 ^3/uL (0-0.2); Basophils % (auto) 0.3 % (0.0-2.0); Eosinophils # (auto) 0.1 10 ^3/uL (0-0.8); Eosinophils % (auto) 1.2 % (0.0-7.0); Hematocrit 41.9 % (41.0-53.0); Hemoglobin 14.1 g/dL (13.5-17.5); Lymphocytes # (auto) 1.7 10 ^3/uL (0.4-5.4); Lymphocytes % (auto) 36.3 % (10.0-50.0); Mean Corpuscular Hemoglobin 29.9 pg (28.0-32.0); Mean Corpuscular Hgb Conc. 33.7 g/dL (32.0-36.0); Mean Corpuscular Volume 88.7 fL (80.0-100.0); Monocytes # (auto) 0.6 10 ^3/uL (0-1.3); Monocytes % (auto) 12.6 % (0.0-12.0); Neutrophils # (auto) 2.4 10 ^3/uL (1.6-8.6); Neutrophils % (auto) 49.6 % (37.0-80.0); Nucleated Red Blood Cells % 0.1 %; Platelet Count (auto) 240 10^3/uL (140-450); Red Blood Cells 4.72 10^6/uL (4.5-5.90); Red Cell Distribution Width 14.4 % (11.8-14.3); White Blood Cell 4.8 10^3/uL (4.4-10.8)
--- NOTE | 2024-03-31 14:27 | DVHPN2 ---
Progress Note Date Seen: Mar 31, 2024 Medical Necessity Reason Pt with a Central, PICC or Fol: No Subjective Review of Systems: CVS:Normal, RESPIRATORY:Normal, GI:Normal, :Normal, NEURO:Normal Objective vital signs Vital Sign Date Time Temp Pulse Resp B/P (MAP) Pulse Ox O2 Delivery O2 Flow Rate FiO2 03/31/24 14:17 144/74 03/31/24 13:00 98.1 75 18 97 98.1 03/31/24 08:00 Room Air* 0 21 Total Intake and Output 03/30/24 03/30/24 03/31/24 15:00 23:00 07:00 Intake Total 450 ml 780 ml 680 ml Output Total 800 ml Balance 450 ml 780 ml -120 ml medications Current Medications Medications Dose Ordered Sig/Carmelina Route Start Time Stop Time Status Last Admin Dose Admin Acetaminophen/ Hydrocodone Bitart 1 tab Q4HP PRN PO 03/28/24 16:00 03/30/24 23:40 1 TAB Ondansetron HCl 4 mg Q4HP PRN IV 03/28/24 16:00 03/30/24 14:08 4 MG Acetaminophen 650 mg Q6HP PRN PO 03/28/24 16:00 03/30/24 09:45 650 MG Folic Acid 1 mg/ Multivitamins 10 ml/Magnesium Sulfate 8 meq/ Thiamine HCl 100 mg/Dextrose 1,013.2 ml @ 125.001 mls/hr DAILY@1800 INJ 03/28/24 18:00 03/30/24 17:53 125.001 MLS/HR Nitroglycerin 0.4 mg Q5MINP PRN SL 03/28/24 16:00 Morphine Sulfate 2 mg Q30M PRN IV 03/28/24 16:00 Multivitamins 1 tab DAILY PO 03/29/24 10:00 Hold Gabapentin 300 mg TID PO 03/28/24 22:00 03/31/24 14:16 300 MG Quetiapine Fumarate 25 mg HS PO 03/28/24 22:00 03/30/24 21:40 25 MG Sodium Chloride 1,000 ml @ 100 mls/hr Q10H IV 03/29/24 09:15 03/30/24 15:15 100 MLS/HR Sucralfate 1 gm QID@0600,1130,1700,2200 PO 03/29/24 10:00 03/31/24 11:30 1 GM Oseltamivir Phosphate 75 mg Q12HR PO 03/29/24 10:45 04/03/24 10:44 03/31/24 10:13 75 MG Hydralazine HCl 10 mg Q6HP PRN IV 03/29/24 17:15 03/30/24 21:39 10 MG Pantoprazole Sodium 40 mg BID IV 03/30/24 22:00 03/31/24 10:13 40 MG Carvedilol 6.25 mg Q12HR PO 03/31/24 10:00 03/31/24 10:14 6.25 MG Amlodipine Besylate 10 mg DAILY PO 03/31/24 13:00 03/31/24 14:17 10 MG Lorazepam 1 mg Q4HPRN PRN IV 03/31/24 13:45 Examination: GENERAL:Normal, LUNGS:Normal, CVS:Normal, ABDOMEN:Normal, SKIN:Normal, NEURO:Normal, :Normal laboratory and microbiology Laboratory Tests 03/31/24 13:49 Test 03/31/24 13:49 Range/Units Serum Glucose Pending Labs and/or images reviewed: Labs reviewed by me, Image(s) reviewed by me Problem List/Assessment/Plan Problem List/Assessment/Plan 1. EtOH withdrawals Monitor, banana bag, CIWA protocol, PPI 2. Influenza B Monitor, Tamiflu 3. Acute renal failure R/T hypovolemia Monitor, IV fluids, monitor renal function, nephrology consult 4. Acute alcoholic hepatitis Monitor, as needed Ativan 5. Alcoholic gastritis PPI, GI consult, GI cocktail as needed 6. Hypokalemia Replace Assessment/Plan Subjective: Patient is awake and alert. Objective: Patient was admitted for withdrawal symptoms. Currently stopped drinking this weekend, subsequent he is not feeling well and has having severe nausea and vomiting. Patient was admitted for acute renal failure which, renal function is back at baseline. Patient also had complaints of pain he was diagnosed with influenza B. Patient was initiated on Tamiflu. Plan: Continue current treatment. Monitor daily labs and renal function. Continue Ativan as needed withdrawal symptoms. GI consult, GI cocktail as needed, increase Protonix to b.i.d., replace potassium, advance diet to soft, possible discharge tomorrow, GI consult appreciated Plan discussed with: Patient My Orders My Orders Orders - ANN HERNANDEZ [employer] Procedure Category Date Status Time Carvedilol Tablet PHA 03/31/24 In Process (Coreg Tablet) 10:00 Comprehensive LAB 03/31/24 In Process Metabolic Panel 12:45 Magnesium LAB 03/31/24 In Process 12:45 Amlodipine Tablet PHA 03/31/24 In Process (Norvasc Tablet) 13:00 Soft Diet DIET 03/31/24 Transmitted Lunch Lorazepam 2mg/Ml Inj PHA 03/31/24 In Process (Ativan Inj) 13:45 Dietary Evaluation Review Comments: 1) Continue to monitor pt PO intake to meet at least 75% of meals 2) Consider a 2gm Sodium diet 3) Continue current plan of care Expected Outcomes/Goals: 1) Pt appetite to improve 2) F/U in 3-5 days Date of Service: Mar 31, 2024 Billing Provider: ANNETTA BUSBY MD Common Visit Codes: [id number] INP/OBS CARE (MOD) ANN HERNANDEZ Mar 31, 2024 14:27
[2024-03-31 14:33] LABS: Alanine Aminotransferase 185 U/L (7-40); Albumin 4.2 g/dL (3.2-4.8); Alkaline Phosphatase 51 U/L (46-116); Anion Gap 7 (5-15); Aspartate Aminotransferase 137 U/L (13-40); Calcium 8.9 mg/dL (8.7-10.4); Carbon Dioxide 28 mmol/L (20-31); Chloride 103 mmol/L (98-107); Glucose 110 mg/dL (74-106); Potassium 3.3 mmol/L (3.5-5.1); Sodium 138 mmol/L (136-145)
[2024-03-31 14:34] LABS: BUN/Creatinine Ratio 5.7 (10.0-20.0); Bilirubin, Total 1.1 mg/dL (0.2-1.0); Blood Urea Nitrogen < 5 mg/dL (9-23); Total Protein 6.7 g/dL (5.7-8.2)
[2024-03-31] MEDS: POTASSIUM EFFERVESENT TAB 25 MEQ PO ONE (16:06)
[2024-03-31] MEDS: POTASSIUM CHLORIDE 20 MEQ, LIDOCAINE 1% (LOCAL ANESTH.) 2 ML in SODIUM CHL 0.9% 100 ML IV ONE (16:06)
[2024-04-01 01:00] VITALS: BP 138/92; PULSE 74; RESP 18; TEMP 98.2; O2SAT 97
[2024-04-01 05:00] VITALS: BP 133/86; PULSE 63; RESP 18; TEMP 99; O2SAT 94
[2024-04-01 07:20] VITALS: PULSE 71
[2024-04-01 08:27] VITALS: BP 143/93; PULSE 72; RESP 16; TEMP 98.1; O2SAT 97
[2024-04-01 11:49] VITALS: BP 148/91; PULSE 75; RESP 17; TEMP 97.7; O2SAT 96
[2024-04-01 15:19] LABS: Alanine Aminotransferase 189 U/L (7-40); Albumin 4.6 g/dL (3.2-4.8); Alkaline Phosphatase 55 U/L (46-116); Anion Gap 7 (5-15); Aspartate Aminotransferase 119 U/L (13-40); BUN/Creatinine Ratio 6.3 (10.0-20.0); Blood Urea Nitrogen 6 mg/dL (9-23); Calcium 9.6 mg/dL (8.7-10.4); Carbon Dioxide 28 mmol/L (20-31); Chloride 105 mmol/L (98-107); Glucose 102 mg/dL (74-106); Potassium 3.7 mmol/L (3.5-5.1); Sodium 140 mmol/L (136-145)
[2024-04-01 15:20] LABS: Bilirubin, Total 0.7 mg/dL (0.2-1.0); Total Protein 7.3 g/dL (5.7-8.2)
[2024-04-01] MEDS ORDERED: PANT40TA2 PO (15:50)
[2024-04-01] MEDS ORDERED: LORA-655 PO (15:50)
[2024-04-01] MEDS ORDERED: GABA-1250 PO (15:50)
[2024-04-01] MEDS ORDERED: SUCR1SUS26 PO (15:50)
[2024-04-01] MEDS ORDERED: CARV-214 PO (15:50)
[2024-04-01] MEDS ORDERED: AML5T PO (15:52)
--- NOTE | 2024-04-01 15:52 | DVHDS2 ---
Discharge Summary Date of Admission Mar 28, 2024 at 16:00 Date of Discharge: Apr 01, 2024 Labs/Diagnostic Data: Laboratory Results Test 04/01/24 14:49 03/31/24 13:49 03/29/24 07:25 03/29/24 02:47 Sodium Level 140 mmol/L (136-145) Potassium Level 3.7 mmol/L (3.5-5.1) Chloride Level 105 mmol/L (98-107) Carbon Dioxide Level 28 mmol/L (20-31) Anion Gap 7 (5-15) Blood Urea Nitrogen 6 mg/dL (9-23) Creatinine 0.96 mg/dL (0.700-1.30) Glomerular Filtration Rate Calc 103 mL/min (>90) BUN/Creatinine Ratio 6.3 (10.0-20.0) Serum Glucose 102 mg/dL (74-106) Calcium Level 9.6 mg/dL (8.7-10.4) Total Bilirubin 0.7 mg/dL (0.2-1.0) Aspartate Amino Transferase (AST) 119 U/L (13-40) Alanine Aminotransferase (ALT) 189 U/L (7-40) Alkaline Phosphatase 55 U/L (46-116) Total Protein 7.3 g/dL (5.7-8.2) Albumin 4.6 g/dL (3.2-4.8) White Blood Count 4.8 10^3/uL (4.4-10.8) Red Blood Count 4.72 10^6/uL (4.5-5.90) Hemoglobin 14.1 g/dL (13.5-17.5) Hematocrit 41.9 % (41.0-53.0) Mean Corpuscular Volume 88.7 fL (80.0-100.0) Mean Corpuscular Hemoglobin 29.9 pg (28.0-32.0) Mean Corpuscular Hemoglobin Concent 33.7 g/dL (32.0-36.0) Red Cell Distribution Width 14.4 % (11.8-14.3) Platelet Count 240 10^3/uL (140-450) Mean Platelet Volume 7.0 fL (6.9-10.8) Neutrophils (%) (Auto) 49.6 % (37.0-80.0) Lymphocytes (%) (Auto) 36.3 % (10.0-50.0) Monocytes (%) (Auto) 12.6 % (0.0-12.0) Eosinophils (%) (Auto) 1.2 % (0.0-7.0) Basophils (%) (Auto) 0.3 % (0.0-2.0) Neutrophils # (Auto) 2.4 10 ^3/uL (1.6-8.6) Lymphocytes # (Auto) 1.7 10 ^3/uL (0.4-5.4) Monocytes # (Auto) 0.6 10 ^3/uL (0-1.3) Eosinophils # (Auto) 0.1 10 ^3/uL (0-0.8) Basophils # (Auto) 0 10 ^3/uL (0-0.2) Nucleated Red Blood Cells 0.1 % Magnesium Level 2.0 mg/dL (1.6-2.6) Hemoglobin A1c 6.1 % A1C (<5.7) Creatine Kinase 919 U/L (46-171) Lipase 35 U/L (12-53) Influenza Type A Antigen Negative (Negative) Influenza Type B Antigen Positive (Negative) SARS-CoV-2 Antigen (Rapid) Negative (NEGATIVE) Test 03/28/24 20:40 03/28/24 12:34 03/28/24 09:49 Urine Opiates Screen Neg (NEGATIVE) Urine Fentanyl Screen Neg (NEGATIVE) Urine Barbiturates Screen Neg (NEGATIVE) Urine Phencyclidine Screen Neg (NEGATIVE) Urine Amphetamines Screen Neg (NEGATIVE) Urine Benzodiazepines Screen Neg (NEGATIVE) Urine Cocaine Screen Neg (NEGATIVE) Urine Cannabinoids Screen Neg (NEGATIVE) Troponin I High Sensitivity 16 ng/L (</=54) Plasma/Serum Blood Alcohol < 3.0 mg/dL (<10) Other Laboratory Tests 04/01/24 14:49 03/31/24 13:49 Brief Hx & Hospital Course: Patient was admitted for ETOH withdrawal. Patient was given banana bag and Ativan as needed for withdrawals, CIWA protocol was implemented. Patient was seen and cleared by GI specialist. Patient was found to have acute alcoholic hepatitis which was improving. Patient was counseled thoroughly to stop drinking. Patient was found to have influenza B was given Tamiflu symptoms did resolve. Patient was sent home with Protonix, sucralfate and Ativan x7 days and blood pressure medications per orders as to follow up with PCP within one week Condition at Discharge: Fair Final Diagnosis/Problems List 1. EtOH withdrawals 2. Influenza B 3. Acute renal failure R/T hypovolemia 4. Acute alcoholic hepatitis 5. Alcoholic gastritis 6. Hypokalemia Discharge Disposition: Home Discharge Instruct/Medications Diet: Cardiac 2g Na,low cholest Activity: No Restrictions, As Tolerated Follow Up/Referral: PCP within 1 week Discharge Statement: "Patient was advised to return to the ER or call 911 if any headaches, dizziness, shortness of breath, chest pain, abdominal pain, bleeding, fevers, or worsening of medical condition. Patient was counseled about treatment plan, medications, possible side effects, patientverbalized understanding. All questions were answered to the best of my ability. This discharge took greater then 30 minutes in planning, reviewing documentation, counseling the patient, and discussing with other team members." ASSESSMENT ASSESSMENT Assessment 1. EtOH withdrawals 2. Influenza B 3. Acute renal failure R/T hypovolemia 4. Acute alcoholic hepatitis 5. Alcoholic gastritis 6. Hypokalemia ANN HERNANDEZ [facility] Apr 01, 2024 15:52
[2024-04-01] MEDS ORDERED: THIAMINE HCL 100 MG TAB PO ONE (17:00)
[2024-04-01] MEDS ORDERED: MULTIPLE VITAMIN TAB PO ONE (17:00)
[2024-04-01] MEDS ORDERED: MAGNESIUM OXIDE 400 MG TAB PO ONE (17:00)
[2024-04-01] MEDS ORDERED: FOLIC ACID 1 MG TAB PO ONE (17:00)
[2024-04-02] MEDS ORDERED: FOLIC ACID 1 MG TAB PO SCH (10:00)
[2024-04-02] MEDS ORDERED: THIAMINE HCL 100 MG TAB PO SCH (10:00)
[2024-04-02] MEDS ORDERED: MAGNESIUM OXIDE 400 MG TAB PO SCH (10:00)
[2024-04-02] MEDS ORDERED: MULTIPLE VITAMIN TAB PO SCH (10:00)
--- NOTE | 2024-04-08 15:09 | ECG ---
[facility] Test Date: 2024-03-30 Test Time: 23:59:05 Pat Name: DARNELL KHAN Department: Room: 0209T A Gender: M Phone Engineer: Bailey VARGAS : 1985 Requested By: ANN LYNN Order Number: [id number] Reading MD: Jarred Moraes Measurements Intervals [place] Rate: 82 P: 65 [place]: 172 QRS: -56 QRSD: 112 T: -39 QT: 479 QTc: 560 Interpretive Statements Sinus rhythm Incomplete RBBB and LAFB Prolonged QT interval Baseline wander in lead(s) V3 Electronically Signed On 04-09-2024 9:08:19 PST by Jarred Moraes Please click the below link to view image of tracing.
--- NOTE | 2024-04-08 15:09 | ECG ---
[facility] Test Date: 2024-03-30 Test Time: 23:59:41 Pat Name: DARNELL KHAN Department: Room: 0209T A Gender: M Laundry Presser: Bailey VARGAS : 1985 Requested By: ANN LYNN Order Number: [id number] Reading MD: Jarred Moraes Measurements Intervals [place] Rate: 78 P: 0 [place]: 0 QRS: -49 QRSD: 113 T: -22 QT: 411 QTc: 469 Interpretive Statements Atrial fibrillation Incomplete RBBB and LAFB Electronically Signed On 04-09-2024 9:08:20 PST by Jarred Moraes Please click the below link to view image of tracing.
== END 2024-04-01 17:00 | disposition home or self-care (01) | DRG 280 ==
LOC: ER 09:19 → EDBD 09:19 → TELE 16:00 → TELE-WESTW 03-29 03:16 → TELE-CENTR 03-29 03:58
PROVIDERS: ADMIT Nurse Practitioner; ATTEND Nurse Practitioner
DX: K70.10 Alcoholic hepatitis without ascites (principal); N17.0 Acute kidney failure with tubular necrosis; K29.20 Alcoholic gastritis without bleeding; E86.0 Dehydration; E86.1 Hypovolemia; Z20.822 Contact with and (suspected) exposure to COVID-19; J10.1 Influenza due to other identified influenza virus with other respiratory manifestations; E87.6 Hypokalemia; F10.239 Alcohol dependence with withdrawal, unspecified; K20.90 Esophagitis, unspecified without bleeding; Z83.3 Family history of diabetes mellitus; Z82.0 Family history of epilepsy and other diseases of the nervous system; Z79.899 Other long term (current) drug therapy; Y90.0 Blood alcohol level of less than 20 mg/100 ml
CPT/HCPCS: 36415; 71045; 80048; 80053; 80307; 80320; 82550; 83036; 83690; 83735; 84484; 85025; 87426; 87804; 93005; G0378; J2003; J2405; J2470